=== PATIENT | female | born 1965 | race Caucasian/White ===

== ENCOUNTER 2022-02-24 14:09 | Emergency (ER) | payer MEDICARE ==
[~2022-02-24] VITALS: Ht 167.6 cm; Wt 73.0 kg
[2022-02-24 14:19] VITALS: BP 110/77
== END 2022-02-24 16:11 | disposition left against medical advice (07) ==
LOC: ER 14:09
DX: Z53.21 Procedure and treatment not carried out due to patient leaving prior to being seen by health care provider (principal)